=== PATIENT | male | born 1955 | race Caucasian/White ===

== ENCOUNTER 2016-11-28 07:48 | Inpatient (IN) | payer OTHER ==
[2016-11-28] VITALS (31 sets, daily range): BP systolic 73–164; BP diastolic 53–101; PULSE 12–101; RESP 12–26; Ht 180.3 cm; Wt 118.1 kg
[~2016-11-28] VITALS: Ht 180.3 cm; Wt 118.1 kg
[~2016-11-28 07:48] MED LIST: ALBU8.5H5 IH; ASPI-535 PO; ATEN-51 PO; ATOR10TA65 PO; CELE200C PO; CETI10CA PO; CHOL20003 PO; DICL1ADH6 TP; EPHEDrine SULFATE 50 MG/5 ML SYG ONE; LEVITRA PO; LISI10TA2 PO; MELO-109 PO; METF500T4 PO; OMEP20CA16 PO; PROPOFOL 200 MG INJ ONE; TERA10CA42 PO
[2016-11-28] MEDS ORDERED: LANT3I SC (08:56)
[2016-11-28] MEDS ORDERED: TERA5CAP3 PO (08:56)
[2016-11-28] MEDS ORDERED: LIDOCAINE 2%/EPI 30 ML INJ ONE (09:03)
[2016-11-28] MEDS ORDERED: GELATIN SIZE 100 SPONGE ONE (09:05)
[2016-11-28] MEDS ORDERED: THROMBIN 5000 UNIT VIAL ONE (09:05)
[2016-11-28] MEDS ORDERED: POLYMYXIN/BACITRACIN 1L IRRIG ONE (09:05)
--- NOTE | 2016-11-28 09:06 | HPN ---
Date/Time of Note Date/Time of Note DATE: 11/28/16 TIME: 09:06 Interval H&P Admission Note Pt. seen H&P reviewed: No system changes AMY JIN PA-C Nov 28, 2016 09:06
[2016-11-28] MEDS ORDERED: LIDOCAINE 2% (SDV) 5 ML INJ ONE (09:23)
[2016-11-28] MEDS ORDERED: PROPOFOL 20 ML ONE (09:23)
[2016-11-28] MEDS ORDERED: FENTAnyl 50 MCG/ML VIAL ONE (09:23)
[2016-11-28] MEDS ORDERED: SUCCINYLCHOLINE CHLORIDE 100 MG/5 ML SYG IV ONE (09:23)
[2016-11-28] MEDS ORDERED: ROCURONIUM 50 MG INJ ONE ×2 (09:23→10:03)
[2016-11-28] MEDS ORDERED: MIDAZOLAM 1 MG/ML 2 ML INJ ONE (09:23)
[2016-11-28] MEDS ORDERED: ONDANSETRON 4 MG INJ IV PRN ×2 (09:30→10:00)
[2016-11-28] MEDS ORDERED: CEFAZOLIN 1 GM INJ ONE (09:41)
[2016-11-28] MEDS ORDERED: PHENYLephrine (100 MCG/ML) 5ML SYG ONE (09:48)
[2016-11-28] MEDS ORDERED: DIPHENHYDRAMINE 50 MG INJ IV PRN (10:00)
[2016-11-28] MEDS ORDERED: FENTAnyl 50 MCG/ML VIAL IV PRN ×2 (10:00)
[2016-11-28] MEDS ORDERED: MEPERIDINE 25 MG INJ IV PRN (10:00)
[2016-11-28] MEDS ORDERED: PROCHLORPERAZINE 10 MG INJ IV PRN (10:00)
[2016-11-28] MEDS ORDERED: HYDROmorphONE (0.2 MG/ML) 10ML SYG IV PRN ×2 (10:00)
[2016-11-28] MEDS ORDERED: NEOSTIGMINE 3 MG/3 ML SYRINGE ONE (10:03)
[2016-11-28] MEDS ORDERED: GLYCOPYRROLATE 0.4 MG INJ ONE (10:04)
[2016-11-28] MEDS ORDERED: HYDROmorphONE 2 MG/ML SYG ONE (10:04)
[2016-11-28] MEDS: HYDROmorphONE (0.2 MG/ML) 10ML SYG IV PRN ×2 (11:45→14:41)
[2016-11-28] MEDS: CEFAZOLIN 1 GM/50 ML (PMX) 50 ML IVPB SCH ×2 (15:20→21:40)
[2016-11-28] MEDS: morphine 2 MG INJ IV PRN ×3 (15:58→23:01)
[2016-11-28] MEDS ORDERED: HYPOGLYCEMIA PROTOCOL when Glucose is <70 mg/dL or symptomatic <90 mg/dL. XX ONE (18:30)
[2016-11-28] MEDS ORDERED: GLUCOSE GEL 15 GRAM TUBE PO PRN ×2 (18:30)
[2016-11-28] MEDS ORDERED: GLUCAGON 1 MG INJ IM PRN (18:30)
[2016-11-28] MEDS ORDERED: Discontinue Glyburide, Glipizide, and/or Glimepiride prior to starting Insulin XX ONE (18:30)
[2016-11-28] MEDS ORDERED: GLUCOSE GEL 15 GRAM TUBE BUCCAL PRN (18:30)
[2016-11-28] MEDS ORDERED: DEXTROSE 50% 50 ML SYRINGE IV PRN ×2 (18:30)
--- NOTE | 2016-11-28 19:59 | HP ---
DATE OF ADMISSION: 11/28/2016 CHIEF COMPLAINT: ____ HISTORY OF PRESENT ILLNESS: The patient is a 61-year-old gentleman with history of hypertension, di abetes, chronic lower back pain due to severe spinal stenosis. The patient was brought in to [facility] today. The patient was seen by Dr. Yusuf as an outpatient and was diagnosed with L1-L2 stenosi s with spondylosis. The patient underwent laminectomy with posterolateral in situ fusion. The slim ent is being admitted for further evaluation and management. The patient denied any chest pain. No shortness of breath. No history of nausea, vomiting. No history of recent fever or chills. No hi story of abdominal pain. No history of numbness, tingling in any extremities. No prior history of any neurological deficit. No known history of coronary artery disease or CVA. The patient is being admitted for further evaluation. PAST SURGICAL HISTORY: The patient is status post left total knee replacement, left shoulder replac ement, gastric bypass surgery, cholecystectomy. ALLERGIES: NONE. SOCIAL HISTORY: No smoking, no alcohol. FAMILY HISTORY: Noncontributory. PHYSICAL EXAMINATION: GENERAL: The patient is conscious, awake, alert. VITAL SIGNS: Temperature 98.1, pulse 101, respirations 16, blood pressure 111/61, O2 saturation 98% on 2 liters nasal cannula. HEENT: No eye discharge or redness. Extraocular movement intact. Oropharynx clear. NECK: No mass. CHEST: Fairly clear. CARDIOVASCULAR: S1, S2 normal. No murmur, gallop, or rub. ABDOMEN: Soft, nondistended, nontender. Bowel sounds present. EXTREMITIES: No leg edema. The patient has ingrown toenail bilaterally. Pedal pulses palpable. NEUROLOGIC: The patient is awake, alert, follows simple commands. LABORATORY DATA: Glucose 92. Coagulation profile normal, done as an outpatient. The patient's hem oglobin A1c 5.9 done on 10/16/2016. Hemoglobin 12.8, WBC 5, platelets 246. Liver enzymes normal. Creatinine 1.2, BUN 11, sodium 141, potassium 4.3. Recent LDL 90. IMPRESSION: 1. L1-L2 stenosis with spondylosis status post laminectomy with posterolateral in situ fusion. 2. Hypertension. 3. Diabetes mellitus. 4. Bilateral ingrown toenail. PLAN: The patient admitted on medical floor. The patient had a few readings of blood pressure in t he 70s and 80s. Therefore, we will hold off on Zestril and Hytrin. We will decrease the dose of La ntus, as the patient is not on his regular diet. Will put him on sliding scale insulin. Will jose alejandro nue Tenormin if he can tolerate. Continue postoperative care as per Dr. Yusuf. Will use SCD for DVT prophylaxis. We will continue to follow him from a medical standpoint. Dictated By: SONI MANLEY MD AB/NTS Conf#: [id number] DID#: [id number] CC: SARAH YUSUF MD;*EndCC*
[2016-11-28] MEDS: INSULIN ASPART [NOVOLOG] 3 ML PEN SC SCH (20:15)
[2016-11-28] MEDS ORDERED: TERAZOSIN 5 MG CAP PO SCH (21:00)
--- NOTE | 2016-11-28 21:26 | RADRPT ---
PROCEDURE: Fluoroscopy services. CLINICAL INDICATION: Lumbar spine pain. TECHNIQUE: Fluoroscopy services during lumbar fusion. COMPARISON: None FINDINGS: Fluoroscopy services during lumbar fusion, as per document provided with these images. No images ar e provided. 15.3 seconds of fluoroscopy time were employed during the procedure. IMPRESSION: Fluoroscopy services during lumbar fusion. RPTAT: [facility] Physician Jeremi Date Time Electronically viewed and signed by Physician Jeremi on 11/28/2016 21:26 RS/
[2016-11-28] MEDS: HYDROCODONE/APAP (10/325) TAB PO PRN (22:06)
[2016-11-29] MEDS: morphine 2 MG INJ IV PRN ×2 (01:56→05:09)
[2016-11-29] MEDS: ACCU-CHEK XX SCH (02:00)
[2016-11-29 02:06] VITALS: BP 128/85; PULSE 62; RESP 18
[2016-11-29] MEDS: PANTOPRAZOLE (EC) 40 MG TAB PO SCH (05:05)
[2016-11-29] MEDS: CEFAZOLIN 1 GM/50 ML (PMX) 50 ML IVPB SCH ×2 (05:05→14:49)
--- NOTE | 2016-11-29 06:56 | PREOPHP ---
DATE OF ADMISSION: 11/28/2016 HISTORY OF PRESENT ILLNESS: The patient was originally seen in the office for evaluation of low edward k pain going to the lower extremities. He was diagnosed with lumbar 1, lumbar 2 stenosis ____ spond ylosis. Conservative management was offered to the patient in the form of physical therapy, pain ma nagement, as well as epidural injections of the lumbar spine. The patient had failed outpatient the rapy, has failed at conservative management. The only option at this point is the surgical interven tion. The patient continues to complain of low back pain with pain going to the lower extremities _ ___. Unfortunately, the only option left at this point is surgical intervention in the form of lumb ar 1, lumbar 2 laminectomy with posterolateral ____ fusion. PAST MEDICAL HISTORY: Gastric bypass, BPH. PAST SURGICAL HISTORY: Gastric bypass, TURP. SOCIAL HISTORY: Denies illegal drugs, alcohol, or tobacco. ALLERGIES: PER CHART. MEDICATIONS TAKEN AT HOME: Per chart. FAMILY HISTORY: Unremarkable. REVIEW OF SYSTEMS: Additional 10 point review of systems conducted, pertinent positives in HPI. Ot herwise negative. PHYSICAL EXAMINATION: GENERAL: The patient is awake, alert, and oriented. Follows commands properly. HEENT: Head is atraumatic, normocephalic. Eyes: ____ nonicteric. EOMs intact. Pupils equal, neal ctive. ____ NECK: Supple. No thyromegaly, no JVP, ____. LUNGS: ____ No dyspnea. No tachypnea. CARDIOVASCULAR: No JVD. No pedal edema. ABDOMEN: Soft without guarding. PERIPHERAL VASCULAR: No edema, no swelling. NEUROLOGIC: ____ properly. ____ Cranial nerves II-XII intact. ____ examination he has ____ both o f his upper extremities at shoulders, elbows, and hands. Sensation is intact ____. Lower extremity examination, full flexion, extension of the lumbar spine. The patient has the low back pain. He i s having low back pain with flexion, extension of the hips. Knee flexion, extension is intact bilat erally. Ankle flexion, extension is intact bilaterally. ____ IMAGING FINDINGS: MRI of the lumbar spine dated 09/07/2016 shows lumbar 1, lumbar 2 stenosis with s pondylosis. IMPRESSION: Lumbar 1 to lumbar 2 stenosis with spondylosis. RECOMMENDATIONS: For the patient to undergo surgical intervention in the form of lumbar 1, lumbar 2 laminectomy with posterolateral ____ fusion. ____ more pain and ____. Unfortunately, the only opt ion left at this point is for surgical intervention. The surgery was discussed with the patient in great detail. Complications were explained extensively. The patient wants to go ahead and proceed. The patient will be admitted to the hospital thereafter for further care and ____. Dictated By: SARAH PANIAGUA/PRASANNA Conf#: [id number] DID#: [id number]
[2016-11-29] MEDS: HYDROCODONE/APAP (10/325) TAB PO PRN ×3 (07:32→16:33)
[2016-11-29] MEDS: INSULIN ASPART [NOVOLOG] 3 ML PEN SC SCH ×4 (07:50→20:52)
[2016-11-29 08:15] VITALS: BP 106/57; RESP 19
[2016-11-29] MEDS ORDERED: LISINOPRIL 10 MG TAB PO SCH (09:00)
[2016-11-29] MEDS: ATENOLOL 25 MG TAB PO SCH (09:00)
[2016-11-29] MEDS ORDERED: INSULIN GLARGINE [LANtus] 3 ML PEN SC SCH (09:00)
[2016-11-29] MEDS: metFORMIN 500 MG TAB PO SCH (09:10)
[2016-11-29] MEDS: LORATADINE 10 MG TAB PO SCH (09:11)
[2016-11-29] MEDS: CHOLECALCIFEROL 2,000 UNIT CAP PO SCH (09:11)
[2016-11-29] MEDS: MELOXICAM 7.5 MG TAB PO SCH (09:11)
[2016-11-29] MEDS: INSULIN GLARGINE [LANtus] 3 ML PEN SC SCH (10:16)
--- NOTE | 2016-11-29 15:46 | CONS ---
Date/Time of Note Date/Time of Note DATE: 11/29/16 TIME: 15:43 Assessment/Plan Assessment/Plan Additional Assessment/Plan seen/examined awake/alert/follows/moves all sp lumbar one to lumbar two laminectomy wound looks good hemovac in place bp bordeline low repeat cbc start ivf Consultation Date/Type/Reason Admit Date/Time Nov 28, 2016 at 07:48 Initial Consult Date Exam/Review of Systems Vital Signs Vitals Vital Signs Date Time Temp Pulse Resp B/P Pulse Ox O2 Delivery O2 Flow Rate FiO2 11/29/16 08:15 98.0 66 19 106/57 98 11/29/16 02:06 Nasal Cannula 1.0 Intake and Output 11/28/16 11/28/16 11/29/16 15:00 23:00 07:00 Intake Total 1820 ml 190 ml 1250 ml Output Total 310 ml 240 ml 940 ml Balance 1510 ml -50 ml 310 ml Results Results 24 hrs Laboratory Tests Test 11/28/16 20:15 11/29/16 05:51 11/29/16 08:19 11/29/16 12:17 Bedside Glucose 101 91 92 Lab Scanned Report REFERENCE LAB Medications Medications Current Medications Ondansetron HCl (Zofran Inj) 4 mg Q6H PRN IV NAUSEA AND/OR VOMITING Last administered on 11/28/16 11:45; Admin Dose 4 MG; Start 11/28/16 at 09:30 Acetaminophen/ Hydrocodone Bitart ([place] (10/325)) 1 tab Q4H PRN PO PAIN Last administered on 11/29/16 12:27; Admin Dose 1 TAB; Start 11/28/16 at 09:30 Morphine Sulfate (morphine) 2 mg Q3H PRN IV severe pain Last administered on 05:09; Admin Dose 2 MG; Start 11/28/16 at 09:30 Atenolol (Tenormin) 25 mg DAILY PO ; Start 11/29/16 at 09:00 Cholecalciferol (Vitamin D) 1,000 unit QAM PO Last administered on 11/29/16 09 :11; Admin Dose 1,000 UNIT; Start 11/29/16 at 09:00 Meloxicam (Mobic) 15 mg DAILY PO Last administered on 11/29/16 09:11; Admin Dose 15 MG; Start 11/29/16 at 09:00 Loratadine (Claritin) 10 mg DAILY PO Last administered on 11/29/16 09:11; Admin Dose 10 MG; Start 11/29/16 at 09:00 Pantoprazole (Protonix Tab) 40 mg DAILY@06 PO Last administered on 11/29/16 05 :05; Admin Dose 40 MG; Start 11/29/16 at 06:00 Diagnostic Test (Pha) (Accu-Chek) 1 ea 02 XX ; Start 11/29/16 at 02:00 Insulin Glargine (Lantus) 8 unit DAILY SC Last administered on 11/29/16 10:16 ; Admin Dose 8 UNIT; Start 11/29/16 at 09:00 Miscellaneous Information 1 ea NOTE XX ; Start 11/28/16 at 18:30 Glucose (Glutose) 15 gm Q15M PRN PO DECREASED GLUCOSE; Start 11/28/16 at 18:30 Glucose (Glutose) 22.5 gm Q15M PRN PO DECREASED GLUCOSE; Start 11/28/16 at 18: 30 Dextrose (D50w Syringe) 25 ml Q15M PRN IV DECREASED GLUCOSE; Start 11/28/16 at 18:30 Dextrose (D50w Syringe) 50 ml Q15M PRN IV DECREASED GLUCOSE; Start 11/28/16 at 18:30 Glucagon (Glucagen) 1 mg Q15M PRN IM DECREASED GLUCOSE; Start 11/28/16 at 18:30 Glucose (Glutose) 15 gm Q15M PRN BUCCAL DECREASED GLUCOSE; Start 11/28/16 at 18 :30 AMY JIN PA-C Nov 29, 2016 15:46
[2016-11-29] MEDS: SOD CHLORIDE 0.9% 1,000 ML IV SCH (16:30)
--- NOTE | 2016-11-29 17:14 | PN ---
Date/Time of Note Date/Time of Note DATE: 11/29/16 TIME: 17:08 Assessment/Plan Lines/Catheters IV Catheter Type (from Nrsg): Peripheral IV Urinary Cath still in place: Yes Subjective 24 Hr Interval Summary Free Text/Dictation afebrile, tolerated PT today, wound vac intact, hypotensive, on IVF, uses urinal , wants fc for one more day, Dw staff Constitutional: requiring IVF, requiring O2 Respiratory: no complaints Cardiovascular: no complaints Gastrointestinal: no complaints Musculoskeletal: back pain Exam/Review of Systems Vital Signs Vitals Vital Signs Date Time Temp Pulse Resp B/P Pulse Ox O2 Delivery O2 Flow Rate FiO2 11/29/16 08:15 98.0 66 19 106/57 98 11/29/16 02:06 Nasal Cannula 1.0 Intake and Output 11/28/16 11/28/16 11/29/16 15:00 23:00 07:00 Intake Total 1820 ml 190 ml 1250 ml Output Total 310 ml 240 ml 940 ml Balance 1510 ml -50 ml 310 ml Exam Constitutional: alert, oriented, well developed ENMT: nl external ears & nose Respiratory: clear to auscultation, normal air movement Cardiovascular: nl pulses, regular rate and rhythm Gastrointestinal: non-tender, soft Musculoskeletal: nl extremities to inspection Extremities: normal pulses Neurological: nl mental status, nl speech Results Results 24 hrs Laboratory Tests Test 11/28/16 20:15 11/29/16 05:51 11/29/16 08:19 11/29/16 12:17 Bedside Glucose 101 91 92 Lab Scanned Report REFERENCE LAB Medications Medications Current Medications Ondansetron HCl (Zofran Inj) 4 mg Q6H PRN IV NAUSEA AND/OR VOMITING Last administered on 11/28/16 11:45; Admin Dose 4 MG; Start 11/28/16 at 09:30 Acetaminophen/ Hydrocodone Bitart ([place] (10/325)) 1 tab Q4H PRN PO PAIN Last administered on 11/29/16 16:33; Admin Dose 1 TAB; Start 11/28/16 at 09:30 Morphine Sulfate (morphine) 2 mg Q3H PRN IV severe pain Last administered on 05:09; Admin Dose 2 MG; Start 11/28/16 at 09:30 Atenolol (Tenormin) 25 mg DAILY PO ; Start 11/29/16 at 09:00 Cholecalciferol (Vitamin D) 1,000 unit QAM PO Last administered on 11/29/16 09 :11; Admin Dose 1,000 UNIT; Start 11/29/16 at 09:00 Meloxicam (Mobic) 15 mg DAILY PO Last administered on 11/29/16 09:11; Admin Dose 15 MG; Start 11/29/16 at 09:00 Loratadine (Claritin) 10 mg DAILY PO Last administered on 11/29/16 09:11; Admin Dose 10 MG; Start 11/29/16 at 09:00 Pantoprazole (Protonix Tab) 40 mg DAILY@06 PO Last administered on 11/29/16 05 :05; Admin Dose 40 MG; Start 11/29/16 at 06:00 Diagnostic Test (Pha) (Accu-Chek) 1 ea 02 XX ; Start 11/29/16 at 02:00 Insulin Glargine (Lantus) 8 unit DAILY SC Last administered on 11/29/16 10:16 ; Admin Dose 8 UNIT; Start 11/29/16 at 09:00 Miscellaneous Information 1 ea NOTE XX ; Start 11/28/16 at 18:30 Glucose (Glutose) 15 gm Q15M PRN PO DECREASED GLUCOSE; Start 11/28/16 at 18:30 Glucose (Glutose) 22.5 gm Q15M PRN PO DECREASED GLUCOSE; Start 11/28/16 at 18: 30 Dextrose (D50w Syringe) 25 ml Q15M PRN IV DECREASED GLUCOSE; Start 11/28/16 at 18:30 Dextrose (D50w Syringe) 50 ml Q15M PRN IV DECREASED GLUCOSE; Start 11/28/16 at 18:30 Glucagon (Glucagen) 1 mg Q15M PRN IM DECREASED GLUCOSE; Start 11/28/16 at 18:30 Glucose 15 gm 15 gm Q15M PRN BUCCAL DECREASED GLUCOSE; Start 11/28/16 at 18:30 Sodium Chloride (NS) 1,000 ml @ 75 mls/hr [id number] IV Last administered on 11/29 16:30; Admin Dose 75 MLS/HR; Start 11/29/16 at 16:00 JERROD ACOSTA Nov 29, 2016 17:14
[2016-11-29 20:11] VITALS: BP 105/57; RESP 20
[2016-11-29] MEDS: AL HYDROX/MG HYDROX/SIMETH 30 ML CUP PO PRN (21:52)
[2016-11-30] MEDS: ACCU-CHEK XX SCH (02:00)
[2016-11-30] MEDS: AL HYDROX/MG HYDROX/SIMETH 30 ML CUP PO PRN (04:25)
[2016-11-30] MEDS: HYDROCODONE/APAP (10/325) TAB PO PRN ×5 (05:03→22:36)
[2016-11-30] MEDS: PANTOPRAZOLE (EC) 40 MG TAB PO SCH (05:03)
[2016-11-30] MEDS: SOD CHLORIDE 0.9% 1,000 ML IV SCH ×2 (05:20→17:29)
[2016-11-30 05:50] LABS: ADD SCAN DIFF NO
[2016-11-30 06:15] LABS: BASOPHILS % 0.4 % (0.0-2.0); EOSINOPHILS # 0.2 10^3/ul (0.0-0.5); EOSINOPHILS % 2.6 % (0.0-7.0); HEMATOCRIT 31.9 % (42.0-52.0); HEMOGLOBIN 10.4 g/dl (14.0-18.0); LYMPHOCYTES # 1.3 10^3/ul (0.8-2.9); LYMPHOCYTES % 16.8 % (15.0-51.0); MEAN CORPUSCULAR HEMOGLOBIN 29.1 pg (29.0-33.0); MEAN CORPUSCULAR HGB CONC 32.6 g/dl (32.0-37.0); MEAN CORPUSCULAR VOLUME 89.4 fl (82.0-101.0); MEAN PLATELET VOLUME 11.7 fl (7.4-10.4); MONOCYTE # 0.9 10^3/ul (0.3-0.9); MONOCYTES % 11.7 % (0.0-11.0); NEUTROPHIL # 5.3 10^3/ul (1.6-7.5); NEUTROPHILS % 68.2 % (39.0-77.0); PLATELET COUNT 166 10^3/UL (140-415); RED BLOOD COUNT 3.57 10^6/ul (4.70-6.10); RED CELL DISTRIBUTION WIDTH 15.8 % (11.5-14.5); WHITE BLOOD COUNT 7.8 10^3/ul (4.8-10.8)
[2016-11-30 06:52] LABS: CALCIUM 8.6 mg/dl (8.4-10.2); CREATININE 1.08 mg/dl (0.61-1.24); POTASSIUM 3.5 mmol/L (3.5-5.1)
[2016-11-30 07:46] VITALS: BP 106/55; RESP 19
[2016-11-30] MEDS: INSULIN ASPART [NOVOLOG] 3 ML PEN SC SCH ×4 (07:50→21:00)
[2016-11-30] MEDS: ATENOLOL 25 MG TAB PO SCH (09:00)
[2016-11-30] MEDS: LORATADINE 10 MG TAB PO SCH (09:19)
[2016-11-30] MEDS: MELOXICAM 7.5 MG TAB PO SCH (09:20)
[2016-11-30] MEDS: metFORMIN 500 MG TAB PO SCH (09:20)
[2016-11-30] MEDS: CHOLECALCIFEROL 2,000 UNIT CAP PO SCH (09:20)
[2016-11-30] MEDS: INSULIN GLARGINE [LANtus] 3 ML PEN SC SCH (09:25)
--- NOTE | 2016-11-30 19:21 | PN ---
Date/Time of Note Date/Time of Note DATE: 11/30/16 TIME: 19:19 Assessment/Plan VTE Prophylaxis VTE Prophylaxis Intervention: SCD's Lines/Catheters IV Catheter Type (from Nrsg): Peripheral IV Urinary Cath still in place: Yes Reason Cath still needed: urinary retention Assessment/Plan Chief Complaint/Hosp Course Patient is able to ambulate with no problems pain is well controlled, low back dressing is dry clean and intact with drain. Problems: Assessment/Plan 1. L1-L2 stenosis with spondylosis status post laminectomy with posterolateral in situ fusion. Continue [place] and morphine for pain. 2. Hypertension. Continue atenolol 3. Diabetes mellitus. Continue metformin, Lantus and NovoLog. 4. Bilateral ingrown toenail. Further recommendations based on clinical course, plan of care discussed with Dr. Carr Exam/Review of Systems Vital Signs Vitals Vital Signs Date Time Temp Pulse Resp B/P Pulse Ox O2 Delivery O2 Flow Rate FiO2 11/30/16 07:46 98.0 87 19 106/55 98 11/29/16 02:06 Nasal Cannula 1.0 Intake and Output 11/29/16 11/29/16 11/30/16 15:00 23:00 07:00 Intake Total 1400 ml 750 ml Output Total 940 ml 1000 ml Balance 460 ml -250 ml Exam Constitutional: alert, oriented Head: normocephalic Neck: supple Respiratory: normal air movement Cardiovascular: nl pulses Gastrointestinal: soft Musculoskeletal: other (Low back surgical incision was draining) Extremities: normal pulses Neurological: nl mental status Results Result Diagram: 11/30/16 0438 11/30/16 0438 Results 24 hrs Laboratory Tests Test 11/29/16 20:44 11/30/16 04:38 11/30/16 08:13 11/30/16 12:31 Bedside Glucose 120 104 109 White Blood Count 7.8 Red Blood Count 3.57 L Hemoglobin 10.4 L Hematocrit 31.9 L Mean Corpuscular Volume 89.4 Mean Corpuscular Hemoglobin 29.1 Mean Corpuscular Hemoglobin Concent 32.6 Red Cell Distribution Width 15.8 H Platelet Count 166 Mean Platelet Volume 11.7 H Neutrophils % 68.2 Lymphocytes % 16.8 Monocytes % 11.7 H Eosinophils % 2.6 Basophils % 0.4 Nucleated Red Blood Cells % 0.0 Neutrophils # 5.3 Lymphocytes # 1.3 Monocytes # 0.9 Eosinophils # 0.2 Basophils # 0.0 Nucleated Red Blood Cells # 0.0 Sodium Level 136 Potassium Level 3.5 Chloride Level 101 Carbon Dioxide Level 27 Anion Gap 12 Blood Urea Nitrogen 13 Creatinine 1.08 Glucose Level 92 Calcium Level 8.6 Test 11/30/16 17:28 Bedside Glucose 106 Medications Medications Current Medications Ondansetron HCl (Zofran Inj) 4 mg Q6H PRN IV NAUSEA AND/OR VOMITING Last administered on 11/28/16 11:45; Admin Dose 4 MG; Start 11/28/16 at 09:30 Acetaminophen/ Hydrocodone Bitart ([place] (10)) 1 tab Q4H PRN PO PAIN Last administered on 11/30/16 17:30; Admin Dose 1 TAB; Start 11/28/16 at 09:30 Morphine Sulfate (morphine) 2 mg Q3H PRN IV severe pain Last administered on 05:09; Admin Dose 2 MG; Start 11/28/16 at 09:30 Atenolol (Tenormin) 25 mg DAILY PO ; Start 11/29/16 at 09:00 Cholecalciferol (Vitamin D) 1,000 unit QAM PO Last administered on 11/30/16 09 :20; Admin Dose 1,000 UNIT; Start 11/29/16 at 09:00 Meloxicam (Mobic) 15 mg DAILY PO Last administered on 11/30/16 09:20; Admin Dose 15 MG; Start 11/29/16 at 09:00 Loratadine (Claritin) 10 mg DAILY PO Last administered on 11/30/16 09:19; Admin Dose 10 MG; Start 11/29/16 at 09:00 Pantoprazole (Protonix Tab) 40 mg DAILY@06 PO Last administered on 11/30/16 05 :03; Admin Dose 40 MG; Start 11/29/16 at 06:00 Diagnostic Test (Pha) (Accu-Chek) 1 ea 02 XX ; Start 11/29/16 at 02:00 Insulin Glargine (Lantus) 8 unit DAILY SC Last administered on 11/30/16 09:25 ; Admin Dose 8 UNIT; Start 11/29/16 at 09:00 Miscellaneous Information 1 ea NOTE XX ; Start 11/28/16 at 18:30 Glucose (Glutose) 15 gm Q15M PRN PO DECREASED GLUCOSE; Start 11/28/16 at 18:30 Glucose (Glutose) 22.5 gm Q15M PRN PO DECREASED GLUCOSE; Start 11/28/16 at 18: 30 Dextrose (D50w Syringe) 25 ml Q15M PRN IV DECREASED GLUCOSE; Start 11/28/16 at 18:30 Dextrose (D50w Syringe) 50 ml Q15M PRN IV DECREASED GLUCOSE; Start 11/28/16 at 18:30 Glucagon (Glucagen) 1 mg Q15M PRN IM DECREASED GLUCOSE; Start 11/28/16 at 18:30 Glucose 15 gm 15 gm Q15M PRN BUCCAL DECREASED GLUCOSE; Start 11/28/16 at 18:30 Sodium Chloride (NS) 1,000 ml @ 75 mls/hr [id number] IV Last administered on 11/29 16:30; Admin Dose 75 MLS/HR; Start 11/29/16 at 16:00 Al Hydrox/Mg Hydrox/Simethicone (Mag-Al Plus) 30 ml Q4H PRN PO GASTROINTESTINAL UPSET Last administered on 11/30/16 04:25; Admin Dose 30 ML; Start 11/29/16 at 21:30 WEN LOZANO Nov 30, 2016 19:21
[2016-11-30 21:49] VITALS: BP 99/59; RESP 20
[2016-11-30] MEDS ORDERED: DOCUSATE SODIUM 100 MG CAP PO PRN (22:00)
[2016-11-30] MEDS: SENNA TAB PO SCH (22:36)
[2016-12-01] MEDS: ACCU-CHEK XX SCH (01:52)
[2016-12-01] MEDS: PANTOPRAZOLE (EC) 40 MG TAB PO SCH (04:46)
[2016-12-01] MEDS: HYDROCODONE/APAP (10/325) TAB PO PRN ×2 (04:46→13:03)
[2016-12-01 05:09] LABS: ADD SCAN DIFF NO
[2016-12-01 05:19] LABS: BASOPHILS % 0.3 % (0.0-2.0); EOSINOPHILS # 0.7 10^3/ul (0.0-0.5); HEMOGLOBIN 9.9 g/dl (14.0-18.0); LYMPHOCYTES # 1.5 10^3/ul (0.8-2.9); LYMPHOCYTES % 22.5 % (15.0-51.0); MEAN CORPUSCULAR HEMOGLOBIN 29.6 pg (29.0-33.0); MEAN CORPUSCULAR VOLUME 89.6 fl (82.0-101.0); MEAN PLATELET VOLUME 11.8 fl (7.4-10.4); MONOCYTE # 0.7 10^3/ul (0.3-0.9); MONOCYTES % 10.3 % (0.0-11.0); NEUTROPHIL # 3.7 10^3/ul (1.6-7.5); NEUTROPHILS % 56.6 % (39.0-77.0); PLATELET COUNT 175 10^3/UL (140-415); RED BLOOD COUNT 3.35 10^6/ul (4.70-6.10); RED CELL DISTRIBUTION WIDTH 15.5 % (11.5-14.5); WHITE BLOOD COUNT 6.5 10^3/ul (4.8-10.8)
[2016-12-01 05:45] LABS: CALCIUM 8.8 mg/dl (8.4-10.2); CREATININE 1.16 mg/dl (0.61-1.24); POTASSIUM 4.3 mmol/L (3.5-5.1)
[2016-12-01] MEDS: INSULIN ASPART [NOVOLOG] 3 ML PEN SC SCH ×2 (07:50→11:40)
[2016-12-01] MEDS: SOD CHLORIDE 0.9% 1,000 ML IV SCH (08:00)
[2016-12-01 08:14] VITALS: BP 102/64; RESP 18
[2016-12-01] MEDS: MELOXICAM 7.5 MG TAB PO SCH (08:47)
[2016-12-01] MEDS: SENNA TAB PO SCH (08:47)
[2016-12-01] MEDS: metFORMIN 500 MG TAB PO SCH (08:48)
[2016-12-01] MEDS: CHOLECALCIFEROL 2,000 UNIT CAP PO SCH (08:48)
[2016-12-01] MEDS: LORATADINE 10 MG TAB PO SCH (08:48)
[2016-12-01] MEDS: INSULIN GLARGINE [LANtus] 3 ML PEN SC SCH (08:50)
--- NOTE | 2016-12-01 08:55 | CONS ---
Date/Time of Note Date/Time of Note DATE: 12/01/16 TIME: 08:54 Assessment/Plan Assessment/Plan Additional Assessment/Plan seen/examined awake/alert/follows/moves all/sensation intact ambulates ok drain dced may go home outpt fu instructions given Consultation Date/Type/Reason Admit Date/Time Nov 28, 2016 at 07:48 Exam/Review of Systems Vital Signs Vitals Vital Signs Date Time Temp Pulse Resp B/P Pulse Ox O2 Delivery O2 Flow Rate FiO2 12/01/16 08:14 98.1 76 18 102/64 100 11/29/16 02:06 Nasal Cannula 1.0 Intake and Output 11/30/16 11/30/16 12/01/16 15:00 23:00 07:00 Intake Total 1400 ml 950 ml Output Total 1610 ml 1050 ml Balance -210 ml -100 ml Results Result Diagram: 12/01/16 0425 12/01/16 0425 Results 24 hrs Laboratory Tests Test 11/30/16 12:31 11/30/16 17:28 11/30/16 20:24 12/01/16 04:25 Bedside Glucose 109 106 118 White Blood Count 6.5 Red Blood Count 3.35 L Hemoglobin 9.9 L Hematocrit 30.0 L Mean Corpuscular Volume 89.6 Mean Corpuscular Hemoglobin 29.6 Mean Corpuscular Hemoglobin Concent 33.0 Red Cell Distribution Width 15.5 H Platelet Count 175 Mean Platelet Volume 11.8 H Neutrophils % 56.6 Lymphocytes % 22.5 Monocytes % 10.3 Eosinophils % 10.0 H Basophils % 0.3 Nucleated Red Blood Cells % 0.0 Neutrophils # 3.7 Lymphocytes # 1.5 Monocytes # 0.7 Eosinophils # 0.7 H Basophils # 0.0 Nucleated Red Blood Cells # 0.0 Sodium Level 135 Potassium Level 4.3 Chloride Level 98 Carbon Dioxide Level 31 Anion Gap 10 Blood Urea Nitrogen 16 Creatinine 1.16 Glucose Level 80 Calcium Level 8.8 Test 12/01/16 08:28 Bedside Glucose 94 Medications Medications Current Medications Ondansetron HCl (Zofran Inj) 4 mg Q6H PRN IV NAUSEA AND/OR VOMITING Last administered on 11/28/16t 11:45; Admin Dose 4 MG; Start 11/28/16 at 09:30 Acetaminophen/ Hydrocodone Bitart ([place] (10/325)) 1 tab Q4H PRN PO PAIN Last administered on 12/01/16 04:46; Admin Dose 1 TAB; Start 11/28/16 at 09:30 Morphine Sulfate (morphine) 2 mg Q3H PRN IV severe pain Last administered on 05:09; Admin Dose 2 MG; Start 11/28/16 at 09:30 Atenolol (Tenormin) 25 mg DAILY PO ; Start 11/29/16 at 09:00 Cholecalciferol (Vitamin D) 1,000 unit QAM PO Last administered on 12/01/16 08 :48; Admin Dose 1,000 UNIT; Start 11/29/16 at 09:00 Meloxicam (Mobic) 15 mg DAILY PO Last administered on 12/01/16 08:47; Admin Dose 15 MG; Start 11/29/16 at 09:00 Loratadine (Claritin) 10 mg DAILY PO Last administered on 12/01/16 08:48; Admin Dose 10 MG; Start 11/29/16 at 09:00 Pantoprazole (Protonix Tab) 40 mg DAILY@06 PO Last administered on 12/01/16 04 :46; Admin Dose 40 MG; Start 11/29/16 at 06:00 Diagnostic Test (Pha) (Accu-Chek) 1 ea 02 XX ; Start 11/29/16 at 02:00 Insulin Glargine (Lantus) 8 unit DAILY SC Last administered on 12/01/16 08:50 ; Admin Dose 8 UNIT; Start 11/29/16 at 09:00 Miscellaneous Information 1 ea NOTE XX ; Start 11/28/16 at 18:30 Glucose (Glutose) 15 gm Q15M PRN PO DECREASED GLUCOSE; Start 11/28/16 at 18:30 Glucose (Glutose) 22.5 gm Q15M PRN PO DECREASED GLUCOSE; Start 11/28/16 at 18: 30 Dextrose (D50w Syringe) 25 ml Q15M PRN IV DECREASED GLUCOSE; Start 11/28/16 at 18:30 Dextrose (D50w Syringe) 50 ml Q15M PRN IV DECREASED GLUCOSE; Start 11/28/16 at 18:30 Glucagon (Glucagen) 1 mg Q15M PRN IM DECREASED GLUCOSE; Start 11/28/16 at 18:30 Glucose 15 gm 15 gm Q15M PRN BUCCAL DECREASED GLUCOSE; Start 11/28/16 at 18:30 Sodium Chloride (NS) 1,000 ml @ 75 mls/hr [id number] IV Last administered on 11/29 16:30; Admin Dose 75 MLS/HR; Start 11/29/16 at 16:00 Al Hydrox/Mg Hydrox/Simethicone (Mag-Al Plus) 30 ml Q4H PRN PO GASTROINTESTINAL UPSET Last administered on 11/30/16 04:25; Admin Dose 30 ML; Start 11/29/16 at 21:30 Senna (Senokot) 1 tab BID PO Last administered on 12/01/16 08:47; Admin Dose 1 TAB; Start 11/30/16 at 22:00 Docusate Sodium (Colace) 100 mg BID PRN PO constipation Last administered on 04:46; Admin Dose 100 MG; Start 11/30/16 at 22:00 AMY JIN PA-C Dec 01, 2016 08:55
[2016-12-01] MEDS: ATENOLOL 25 MG TAB PO SCH (09:00)
--- NOTE | 2016-12-01 12:28 | DS ---
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 Hospital Course Patient came in with back pain. He underwent lameninectomy. Pateint tolerated the procedure and slowly improved By the time of discharge, patient is able to ambulate with no problems pain is well controlled, low back dressing is dry clean and intact with drain. He is sent home with oral pain medication and will follow up with Dr. Hood. Home Meds Reported Medications Terazosin Hcl* (Terazosin Hcl*) 5 Mg Capsule, 5 MG PO HS, CAP 11/28/16 Insulin Glargine* (Lantus*) 100 Unit/Ml Soln, 18 UNIT SC DAILY, #1 VIAL 11/28/16 Aspirin Ec (Aspir 81) 81 Mg Tablet.dr, 81 MG PO DAILY, TAB 02/16/15 Atenolol* (Atenolol*) 25 Mg Tablet, 25 MG PO DAILY, TAB 02/16/15 Metformin Hcl* (Metformin Hcl*) 500 Mg Tablet, 500 MG PO WITH BREAKFAST, TAB 02/16/15 Lisinopril* (Lisinopril*) 10 Mg Tablet, 10 MG PO DAILY, TAB 02/16/15 Cetirizine Hcl* (Zyrtec*) 10 Mg Capsule, 10 MG PO DAILY, TAB 02/16/15 Omeprazole* (Omeprazole*) 20 Mg Capsule.dr, 20 MG PO DAILY, CAP 02/16/15 Cholecalciferol (Vitamin D3) (VITAMIN D-3) 2,000 Unit Capsule, 1000 UNIT PO 02/16/15 Meloxicam* (Meloxicam*) 7.5 Mg Tablet, 15 MG PO DAILY, TAB 02/16/15 Discontinued Reported Medications Celecoxib* (Celebrex*) 200 Mg Capsule, 200 MG PO DAILY, CAP 02/16/15 Albuterol Sulfate* (Albuterol Sulfate* HFA) 8.5 Gm Hfa.aer.ad, 2 PUFF IH Q4H Y for WHEEZING AND SOB, EA 02/16/15 Diclofenac Epolamine (Flector) 30 Ea Adh..patch, 30 EA TP 02/16/15 Terazosin Hcl* (Terazosin Hcl*) 10 Mg Capsule, 10 MG PO HS, CAP 02/16/15 [Levitra ] No Conflict Check, PO 02/16/15 Atorvastatin Calcium (Atorvastatin Calcium) 10 Mg Tab, 10 MG PO HS, TAB 02/16/15 Primary Care Provider Abida Gonzales Pending Labs Laboratory Tests Test 11/30/16 12:31 11/30/16 17:28 11/30/16 20:24 12/01/16 04:25 Bedside Glucose 109mg/dL (70-220) 106mg/dL (70-220) 118mg/dL (70-220) White Blood Count 6.510^3/ul (4.8-10.8) Red Blood Count 3.3510^6/ul (4.70-6.10) Hemoglobin 9.9g/dl (14.0-18.0) Hematocrit 30.0% (42.0-52.0) Mean Corpuscular Volume 89.6fl (82.0-101.0) Mean Corpuscular Hemoglobin 29.6pg (29.0-33.0) Mean Corpuscular Hemoglobin Concent 33.0g/dl (32.0-37.0) Red Cell Distribution Width 15.5% (11.5-14.5) Platelet Count 96591^3/UL (140-415) Mean Platelet Volume 11.8fl (7.4-10.4) Neutrophils % 56.6% (39.0-77.0) Lymphocytes % 22.5% (15.0-51.0) Monocytes % 10.3% (0.0-11.0) Eosinophils % 10.0% (0.0-7.0) Basophils % 0.3% (0.0-2.0) Nucleated Red Blood Cells % 0.0/100WBC (0.0-0.0) Neutrophils # 3.710^3/ul (1.6-7.5) Lymphocytes # 1.510^3/ul (0.8-2.9) Monocytes # 0.710^3/ul (0.3-0.9) Eosinophils # 0.710^3/ul (0.0-0.5) Basophils # 0.010^3/ul (0.0-0.1) Nucleated Red Blood Cells # 0.010^3/ul (0.0-0.0) Sodium Level 135mmol/L (135-144) Potassium Level 4.3mmol/L (3.5-5.1) Chloride Level 98mmol/L (97-110) Carbon Dioxide Level 31mmol/L (21-31) Anion Gap 10 (8-16) Blood Urea Nitrogen 16mg/dl (7-20) Creatinine 1.16mg/dl (0.61-1.24) Glucose Level 80mg/dl (70-220) Calcium Level 8.8mg/dl (8.4-10.2) Test 12/01/16 08:28 12/01/16 12:21 Bedside Glucose 94mg/dL (70-220) 81mg/dL (70-220) KHOI SHARMA Dec 01, 2016 12:28
== END 2016-12-01 14:50 | disposition home or self-care (01) | DRG 517 ==
LOC: REC 07:48 → MS1 16:40
PROVIDERS: ADMIT Internal Medicine; ATTEND Internal Medicine
PROC: 01NB0ZZ Release Lumbar Nerve, Open Approach (ICD-10-PCS; principal; 2016-11-28 10:30)
DX: M48.06 Spinal stenosis, lumbar region (principal); I10 Essential (primary) hypertension; M54.16 Radiculopathy, lumbar region; E11.9 Type 2 diabetes mellitus without complications; Z79.4 Long term (current) use of insulin
CPT/HCPCS: 72114; 80048; 82962; 85025; 87086; 88304; 88311; 97116; 97162; 97530; J0690; J1170; J1815; J2250; J2270; J2370; J2405; J2710; J3010; J7030; J7999